=== PATIENT | female | born 1980 | race Two or more races ===

== ENCOUNTER → 2017-02-24 | Outpatient (REF) | payer OTHER | LOC: M SFHCLERA 20:04 | PROVIDERS: ATTEND Nurse Practitioner Family | DX: J02.9 Acute pharyngitis, unspecified (principal) ==

== ENCOUNTER 2017-02-26 00:10 | Emergency (ER) | payer OTHER ==
[~2017-02-26] VITALS: Ht 170.2 cm; Wt 95.0 kg
[2017-02-26] MEDS ORDERED: ACETAMINOPHEN TAB 650MG DOSE (2X325MG) PO ONE (01:00)
[2017-02-26] MEDS ORDERED: KETOROLAC 30 MG/ML VIAL (J1885) IV ONE (01:00)
[2017-02-26] MEDS ORDERED: NS 1,000 ML IV ONE (01:00)
[2017-02-26 01:24] LABS: BASO % 0.3 % (0.0-1.0); EOS # 0.3 K/mm3 (0.0-0.50); EOS % 2.3 % (0.0-3.0); LARGE UNSTAINED CELL # 0.2 K/mm3 (0.0-0.4); LARGE UNSTAINED CELL % 1.2 % (0.0-4.0); LYMPH # 1.6 K/mm3 (1.5-4.5); LYMPH % 11.9 % (24.0-44.0); MEAN CORPUSCULAR HEMOGLOBIN 25.9 pg (27.0-33.0); MEAN CORPUSCULAR HGB CONC 32.3 g/dl (32.0-36.5); MEAN CORPUSCULAR VOLUME 80.4 fl (80.0-96.0); MONO # 0.7 K/mm3 (0.0-0.8); MONO % 5.1 % (0.0-5.0); NEUTROPHILS # 10.6 K/mm3 (1.8-7.7); NEUTROPHILS % 79.3 % (36.0-66.0); PLATELET COUNT, AUTOMATED 267 k/mm3 (150-450); RED CELL DISTRIBUTION WIDTH 13.9 % (11.5-14.5); WHITE BLOOD COUNT 13.4 K/mm3 (4.0-10.0)
[2017-02-26 01:43] LABS: CONTROL LINE MONO INT CTR LINE PRESENT
[2017-02-26 01:49] LABS: ANION GAP 5 MEQ/L (8-16); BLOOD UREA NITROGEN 8 MG/DL (7-18); CALCIUM LEVEL 8.8 MG/DL (8.5-10.1); CARBON DIOXIDE LEVEL 27 MEQ/L (21-32); CHLORIDE LEVEL 108 MEQ/L (98-107); CREATININE FOR GFR 0.87 MG/DL (0.55-1.02); GLOMERULAR FILTRATION RATE > 60.0 (>60); GLUCOSE, FASTING 111 MG/DL (70-105); POTASSIUM SERUM 3.8 MEQ/L (3.5-5.1); SODIUM LEVEL 140 MEQ/L (136-145)
[2017-02-26 03:28] VITALS: BP 129/68
== END 2017-02-26 04:05 | disposition home or self-care (01) ==
LOC: M ED 00:10
DX: B97.89 Other viral agents as the cause of diseases classified elsewhere (principal)
CPT/HCPCS: 80048; 85025; 86308; 87486; 87581; 87633; 87798; 87880; 96374; 99284; J1885